=== PATIENT | female | born 1965 | race Caucasian/White ===

== ENCOUNTER 2018-06-18 16:28 | Outpatient (CLI) | payer MEDICAID, SELFPAY ==
[2018-06-18 17:48] LABS: CREATININE 0.96 mg/dL (0.55-1.02)
== END 2018-06-18 16:48 ==
PROVIDERS: PCP Family Medicine; Visit Provider Radiology Radiation Oncology
DX: C50.919 Malignant neoplasm of unspecified site of unspecified female breast (principal)
CPT/HCPCS: 36415; 82565

== ENCOUNTER 2018-06-20 00:28 | Outpatient (CLI) | payer MEDICAID, SELFPAY ==
--- NOTE | 2018-06-20 15:22 | DI.CT_ITS ---
SYMPTOM/DIAGNOSIS: METASTATIC BREAST CA, C50.919, S/P TREATMENT TO LT NECK, NOW NEW NODULES LT POST AURICULAR NECK NECK CT: CT examination of the cervical region was performed with intravenous infusion of 100 cc's of Omnipaque 350. Images obtained through the lung apices show in the right lung apex an approximately 12 by 4 mm. in diameter, irregular nodule. This does lie in an area of apparent pulmonary and pleural scarring and this is indeterminate in appearance however the possibility is not excluded. No previous CT available for comparison. Tracheal laryngeal structures appear intact. Apparent decreased caliber of hypopharynx may simply represent deglutition. Correlation requested regarding any suggestion of dysphagia or upper airway obstruction. Epiglottis appears normal. Vocal cords and other laryngeal structures are unremarkable. There are skin markers placed in the retroauricular region below the level of the pinna. These correspond to an area of poorly defined soft tissue thickening with multiple poorly defined areas of nodularity. The findings as described are nonspecific but may represent infectious or neoplastic process. No gross abscess or dominant mass identified. Mild napoleon enlargement is noted in posterior auricular chain on the right with the largest nodes measuring about 12 mm. in diameter. Correlation requested regarding any recent surgery in the left posterior auricular region. Visualized portions of the brain are unremarkable. Orbital structures appear intact. Predominant opacification of right maxillary antrum is noted consistent with chronic sinusitis. Right ethmoid increased attenuation also noted consistent with chronic sinus disease. Minimal mucoperiosteal thickening of right frontal sinus noted. CONCLUSION: 1. Indeterminate right apical lung nodule, neoplastic disease not excluded, chest CT suggested for further evaluation. 2. Indeterminate findings associated with left posterior auricular region, please see above discussion, infectious versus neoplastic origin. Biopsy should be considered if biopsy has not previously been obtained.
[2018-06-20] MEDS: Omnipaque 350 MG/ML 100 ML BTL IJ (15:30)
== END 2018-06-20 00:48 ==
PROVIDERS: PCP Family Medicine; Visit Provider Radiology Radiation Oncology
DX: C50.919 Malignant neoplasm of unspecified site of unspecified female breast (principal); D22.4 Melanocytic nevi of scalp and neck; R91.1 Solitary pulmonary nodule; J98.4 Other disorders of lung; R59.0 Localized enlarged lymph nodes; J32.0 Chronic maxillary sinusitis
CPT/HCPCS: 70491; J3490

== ENCOUNTER 2018-07-04 01:04 | Outpatient (CLI) | payer MEDICAID, SELFPAY ==
[2018-07-04 13:25] LABS: CREATININE 0.61 mg/dL (0.55-1.02)
--- NOTE | 2018-07-04 14:20 | DI.CT_ITS ---
SYMPTOM/DIAGNOSIS: METASTATIC BREAST CA, C50.919, RESTAGING EXAM CHEST, ABDOMEN AND PELVIC CT: Comparison is made with 03/27/18. CHEST: There has been no change in the right hilar and subcarinal lymph nodes. Scattered small nodes are seen in the AP window and superior mediastinum as well as in the left axilla. Surgical clips are seen. There has been interval increase in size of left axillary lymph nodes. No right axillary lymph nodes are seen. No pulmonary emboli are identified. There is stable scarring at the right lung apex. No pulmonary nodules, infiltrates or effusions are seen. IMPRESSION: Interval increase in size of left axillary lymph nodes. Stable appearing right hilar and subcarinal lymph nodes. ABDOMEN AND PELVIS: Again noted is re-cannulization of the umbilical vein and gallstones. There is no biliary dilatation. There is a small diverticulum of the transverse portion of the duodenum. The spleen, pancreas and adrenals are unremarkable. No renal calculi or hydronephrosis is seen. There are stable tiny mesenteric lymph nodes. There has been further improvement in the amount of stranding in the fat surrounding the rectum. No suspicious bony lesions are seen. IMPRESSION: Stable small retroperitoneal lymph nodes. Continued improvement of rectal wall thickening and elenita rectal stranding. No new metastatic disease is seen.
[2018-07-04] MEDS: Omnipaque 350 MG/ML 100 ML BTL IJ (14:21)
[2018-07-04] MEDS: Breeza Beverage 473 ML BTL PO (14:22)
[2018-07-04] MEDS: Omnipaque 350 MG/ML 50 ML BTL PO (14:22)
== END 2018-07-04 01:24 ==
PROVIDERS: PCP Family Medicine; Visit Provider Radiology Radiation Oncology
DX: C50.919 Malignant neoplasm of unspecified site of unspecified female breast (principal); Z12.89 Encounter for screening for malignant neoplasm of other sites; R59.0 Localized enlarged lymph nodes; Z13.89 Encounter for screening for other disorder
CPT/HCPCS: 74177; 71260; 82565; J3490; Q9967

== ENCOUNTER 2018-07-24 01:32 | Outpatient (CLI) | payer MEDICAID, SELFPAY ==
--- NOTE | 2018-07-24 10:51 | DI.NM_ITS ---
SYMPTOMS/DIAGNOSIS: METASTATIC BREAST CA, LOW BACK PAIN, C50.919 WHOLE BODY BONE SCAN: The patient received 22.1 mCi of technetium 99m MDP and whole body imaging was performed. There are no priors for comparison. There is normal activity seen in the kidneys and urinary bladder. No abnormal increased radiotracer uptake is seen in the axillary or appendicular skeleton to suggest osseous metastatic disease. There is symmetric increased radiotracer uptake seen in the shoulders, which is likely degenerative. IMPRESSION: No findings to suggest osseous metastatic disease.
== END 2018-07-24 01:52 ==
PROVIDERS: PCP Family Medicine; Visit Provider Radiology Radiation Oncology
DX: C50.919 Malignant neoplasm of unspecified site of unspecified female breast (principal); M54.5 Low back pain
CPT/HCPCS: 78306

== ENCOUNTER 2018-09-02 08:49 | Outpatient (CLI) | payer MEDICAID, SELFPAY ==
[2018-09-02 09:13] LABS: CREATININE 0.87 mg/dL (0.55-1.02)
== END 2018-09-02 09:09 ==
PROVIDERS: PCP Family Medicine; Visit Provider Radiology Radiation Oncology
DX: C50.919 Malignant neoplasm of unspecified site of unspecified female breast (principal)
CPT/HCPCS: 36415; 82565

== ENCOUNTER 2018-09-05 01:53 | Outpatient (CLI) | payer MEDICAID, SELFPAY ==
--- NOTE | 2018-09-05 14:11 | DI.CT_ITS ---
SYMPTOMS/DIAGNOSIS: KNOWN METASTATIC BREAST CA, S/P RADIATION TO LEFT NECK, NEW PAIN GOING DOWN LT ARM CT SCAN OF THE CHEST: CT scan of the chest was performed following the uneventful administration of intravenous contrast material. Comparison is 07/04/18. The thoracic aorta shows mild atherosclerosis. No aneurysmal dilatation is seen. The heart size is within normal limits. No significant pericardial effusion is present. The tip of the left PICC line is seen in the superior vena cava. No pleural effusion or pneumothorax is identified. There is again seen scarring in the right lung apex which appears stable. Small peripheral infiltrates are seen in the right upper, right middle and right lower lobes. No noncalcified pulmonary nodules are seen in the lungs. The tracheobronchial tree is unremarkable. The mediastinal and hilar lymph nodes are stable compared to the prior examination. The largest lymph node is seen in the subcarinal region and measures 2.7 x 1.5 cm. The enlarged left axillary lymph nodes are stable. The upper abdominal images show stones within the gallbladder. No biliary ductal dilatation. There are areas of sclerosis in several vertebral bodies not as prominent as the prior examination. Metastatic disease can not be excluded. Bone scan should be considered for further evaluation. IMPRESSION: 1. Stable thoracic adenopathy. 2. Development of peripheral infiltrates seen in the right lung. Infectious or inflammatory process should be considered. 3. Increased areas of sclerosis in the thoracic spine. Metastatic disease can not be excluded. Bone scan should be considered for further evaluation. CT SCAN OF THE NECK: Multiple contiguous axial images of the neck were obtained. Sagittal and coronal reformatted images were evaluated on the Siemens workstation. There is again seen soft tissue thickening and enhancement in the soft tissues in the right neck posterior and inferior to the left ear. There is no separation between the abnormal soft tissue and the underlying sternocleidomastoid muscle and muscular involvement can not be excluded. The nasopharynx, oropharynx, hypopharynx and larynx are unremarkable. The submandibular glands have a normal appearance as does the right parotid gland. There is soft tissue density material seen in the inferior aspect of the left parotid gland. This appears stable. This area measures 1 cm in diameter. There are mildly enlarged lymph nodes seen in the neck bilaterally. These are unchanged. The largest is adjacent to the left submandibular gland and measures 0.7 cm in short diameter. The retropharyngeal soft tissues are unremarkable. The orbits and retro-orbital soft tissues are unremarkable. The visualized paranasal sinuses are clear. The mastoid air cells are well pneumatized. There is straightening of the normal cervical lordosis. Mild to moderate degenerative changes are seen in the spine. There does appear to be fusion at the C 6 - 7 disc space. IMPRESSION: 1. Stable enhancing soft tissue thickening in the left posterior neck. There is no apparent separation between the underlying musculature and musculature involvement can not be excluded. An inflammatory or infectious process should be considered. Neoplastic process/metastatic disease can not be excluded. This appears stable. Biopsy may be considered for further evaluation.
[2018-09-05] MEDS: Omnipaque 350 MG/ML 100 ML BTL IJ (14:16)
== END 2018-09-05 02:13 ==
PROVIDERS: PCP Family Medicine; Visit Provider Radiology Radiation Oncology
DX: M54.2 Cervicalgia (principal); M79.602 Pain in left arm; Z85.3 Personal history of malignant neoplasm of breast; Z92.3 Personal history of irradiation; R91.8 Other nonspecific abnormal finding of lung field; M47.812 Spondylosis without myelopathy or radiculopathy, cervical region; R59.0 Localized enlarged lymph nodes
CPT/HCPCS: 70491; 71260; J3490

== ENCOUNTER 2018-09-05 12:52 | Outpatient (RCR) | payer MEDICAID, SELFPAY | END 2018-09-18 23:59 | disposition home or self-care (01) | LOC: INF 12:52 | PROVIDERS: PCP Family Medicine; Visit Provider Internal Medicine Hematology & Oncology | DX: Z45.2 Encounter for adjustment and management of vascular access device (principal) ==

== ENCOUNTER 2019-10-14 19:51 | Outpatient (REF) | payer MEDICAID, SELFPAY ==
[2019-10-14 20:09] LABS: Abs Immature Grans 0.01 k/cumm (0.0-0.09); Absolute Basophil Count 0.02 k/cumm (0.0-0.2); Absolute Eosinophil Count 0.13 k/cumm (0.0-0.7); Absolute Lymphocyte Count 0.81 k/cumm (1.2-3.4); Absolute Monocyte Count 0.41 k/cumm (0.11-0.7); Basophils % 0.6; Eosinophils % 4.1; HCT 27.1 % (36.0-46.0); Immature Grans % 0.3 %; Lymphocytes % 25.5; Mean Corp. HGB Concentration 33.2 g/dL (32.0-36.0); Mean Corpuscular Hemoglobin 30.7 pg (27.0-33.0); Mean Corpuscular Volume 92.5 fL (80-95); Mean Platelet Volume 10.1 fL (8.0-11.0); Monocytes % 12.9; Neutrophils % 56.6; RBC 2.93 m/cumm (4.00-5.20); RBC Distribution Width 20.5 % (11.7-14.6); White Blood Cell Count 3.18 k/cumm (4.4-10.8)
[2019-10-14 20:10] LABS: Platelet Count 108 x1000/uL (130-400)
[2019-10-14 20:16] LABS: ALT 40 U/L (14-59); AST 62 U/L (15-37); Albumin 3.1 g/dL (3.4-5.0); Alkaline Phosphatase 109 U/L (46-116); Anion Gap 11.7 mmol/L (3-11); BUN 8 mg/dL (7-18); Bilirubin, Total 1.4 mg/dL (0.2-1.0); CO2 23.3 mmol/L (21.0-32.0); CREATININE 0.72 mg/dL (0.55-1.02); Calcium 8.6 mg/dL (8.5-10.1); Chloride 102 mmol/L (98-107); Glucose 113 mg/dL (74-106); Magnesium 1.4 mg/dL (1.8-2.4); Potassium 3.6 mmol/L (3.5-5.1); Sodium 137 mmol/L (136-145)
[2019-10-14 20:47] LABS: Anisocytosis 2+; Polychromasia Present
== END 2019-10-14 20:11 ==
LOC: NCHCN 19:51
PROVIDERS: PCP Family Medicine; Visit Provider Family Medicine
DX: E11.9 Type 2 diabetes mellitus without complications (principal); E83.42 Hypomagnesemia; Z85.3 Personal history of malignant neoplasm of breast
CPT/HCPCS: 80053; 83735; 85025

== ENCOUNTER 2022-08-09 15:46 | Outpatient (REF) | payer MEDICAID, SELFPAY ==
[2022-08-09 15:31] LABS: Abs Immature Grans 0.01 10^3/uL (0.0-0.06); Absolute Basophil Count 0.05 10^3/uL (0.0-0.2); Absolute Eosinophil Count 0.06 10^3/uL (0.0-0.7); Absolute Monocyte Count 0.26 10^3/uL (0.1-0.8); Absolute Neutrophil Count 1.24 10^3/uL (1.2-6.7); Basophils % 2.5; HCT 30.2 % (36.0-46.0); HGB 9.7 g/dL (11.2-15.7); Immature Grans % 0.5; Lymphocytes % 19.8; MCH 28.6 pg (27.0-33.0); MCHC 32.1 % (32.0-36.0); MCV 89 fL (80-95); MPV 11.3 fL (8.0-11.0); Monocytes % 12.9; Neutrophils % 61.3; Platelet Count 104 10^3/uL (130-400); RBC 3.39 10^6/uL (3.93-5.22); RDW 15.3 % (11.7-14.6); RDW-SD 50.1 fL; WBC 2.02 10^3/uL (4.4-10.8)
[2022-08-09 15:46] LABS: ALT 24 U/L (14-59); AST 36 U/L (15-37); Albumin 2.4 g/dL (3.4-5.0); Alkaline Phosphatase 211 U/L (46-116); Anion Gap 7.9 mmol/L (3-11); BUN 12 mg/dL (7-18); Bilirubin, Total 0.8 mg/dL (0.2-1.0); CO2 26.1 mmol/L (21.0-32.0); CREATININE 0.8 mg/dL (0.55-1.02); Calcium 8.6 mg/dL (8.5-10.1); Chloride 97 mmol/L (98-107); Estimated GFR 85.35 (mL/min/1.73m2); Glucose 484 mg/dL (74-106); Potassium 4.1 mmol/L (3.5-5.1); Sodium 131 mmol/L (136-145); Total Protein 7.1 g/dL (6.4-8.2)
== END 2022-08-09 15:47 | disposition home or self-care (01) ==
LOC: NCHCN 15:46
PROVIDERS: PCP Family Medicine; Visit Provider Family Medicine
DX: A41.89 Other specified sepsis (principal); D64.9 Anemia, unspecified; E10.9 Type 1 diabetes mellitus without complications; R79.89 Other specified abnormal findings of blood chemistry
CPT/HCPCS: 80053; 85025

== ENCOUNTER 2022-08-20 21:03 | Outpatient (REF) | payer MEDICAID, SELFPAY ==
[2022-08-20 21:50] LABS: Anion Gap 7.2 mmol/L (3-11); BUN 17 mg/dL (7-18); CO2 26.8 mmol/L (21.0-32.0); CREATININE 0.7 mg/dL (0.55-1.02); Calcium 8.9 mg/dL (8.5-10.1); Chloride 99 mmol/L (98-107); Estimated GFR 100.19 (mL/min/1.73m2); Glucose 269 mg/dL (74-106); Potassium 4.1 mmol/L (3.5-5.1); Sodium 133 mmol/L (136-145)
[2022-08-20 21:56] LABS: Hemoglobin A1C 10.7 % (<5.7)
[2022-08-20 22:00] LABS: Abs Immature Grans 0.03 10^3/uL (0.0-0.06); Absolute Basophil Count 0.08 10^3/uL (0.0-0.2); Absolute Eosinophil Count 0.12 10^3/uL (0.0-0.7); Absolute Lymphocyte Count 0.69 10^3/uL (1.2-3.4); Absolute Monocyte Count 0.41 10^3/uL (0.1-0.8); Absolute Neutrophil Count 2.03 10^3/uL (1.2-6.7); Basophils % 2.4; Eosinophils % 3.6; HCT 32.1 % (36.0-46.0); HGB 10.6 g/dL (11.2-15.7); Immature Grans % 0.9; Lymphocytes % 20.5; MCH 28.6 pg (27.0-33.0); MCV 87 fL (80-95); MPV 11.5 fL (8.0-11.0); Monocytes % 12.2; Neutrophils % 60.4; Platelet Count 101 10^3/uL (130-400); RDW 14.4 % (11.7-14.6); RDW-SD 45.7 fL; WBC 3.36 10^3/uL (4.4-10.8)
[2022-08-20 22:09] LABS: Diff Comment PLT Morph Reviewed; RBC Morphology Normal
== END 2022-08-20 21:04 | disposition home or self-care (01) ==
LOC: NCHCN 21:03
PROVIDERS: PCP Family Medicine; Visit Provider Family Medicine
DX: E11.649 Type 2 diabetes mellitus with hypoglycemia without coma (principal); A41.89 Other specified sepsis
CPT/HCPCS: 80048; 83036; 85025

== ENCOUNTER 2022-12-10 16:38 | Outpatient (REF) | payer MEDICAID, SELFPAY ==
[2022-12-10 16:15] LABS: HCT 27.4 % (36.0-46.0); HGB 8.9 g/dL (11.2-15.7); MCH 28.3 pg (27.0-33.0); MCHC 32.5 % (32.0-36.0); MCV 87 fL (80-95); MPV 10.6 fL (8.0-11.0); RBC 3.14 10^6/uL (3.93-5.22); RDW-SD 51.5 fL; WBC 3.63 10^3/uL (4.4-10.8)
[2022-12-10 17:46] LABS: Anion Gap 8.5 mmol/L (3-11); BUN 43 mg/dL (7-18); CO2 25.5 mmol/L (21.0-32.0); CREATININE 2.1 mg/dL (0.55-1.02); Calcium 9.5 mg/dL (8.5-10.1); Chloride 99 mmol/L (98-107); Estimated GFR 26.81 (mL/min/1.73m2); Glucose 219 mg/dL (74-106); Magnesium 1.8 mg/dL (1.8-2.4); Potassium 4.2 mmol/L (3.5-5.1); Sodium 133 mmol/L (136-145)
[2022-12-10 18:51] LABS: Platelet Count 81 10^3/uL (130-400)
== END 2022-12-10 16:39 | disposition home or self-care (01) ==
LOC: NCHCN 16:38
PROVIDERS: PCP Family Medicine; Visit Provider Family Medicine
DX: E78.5 Hyperlipidemia, unspecified (principal); E16.2 Hypoglycemia, unspecified; R78.81 Bacteremia
CPT/HCPCS: 80048; 85027; 83735

== ENCOUNTER 2023-06-28 14:16 | Outpatient (REF) | payer MEDICAID, SELFPAY ==
--- NOTE | 2023-06-28 12:00 | SKI_PTH ---
PATIENT: Albertina Hong I LOC: [facility] U#:[id number] AGE/SX: 58/F ROOM: RE06/28/[address]: Gabrielle Palencia V : 1965 BED: DIS: 06/28/2023 SPEC #: [id number] RECD: 06/28/23 14:20 STATUS: VERN RENancy #: [id number] CONOR: 06/28/23 12:[address]: Gabrielle Palencia V DEPT: Surgical Specimen RECD BY: Niurka Esquivel Tissues: 1 - SKIN BIOPSY(SHAVE/PUNCH) Procedures: IMMUNOPEROXIDASE STAIN SKIN LEVEL 4 Comments: [id number]
--- OUTSIDE RECORDS SUMMARY | 2023-06-28 14:33 | XMS_ITS | Continuity of Care Document ---
Author Name Unknown Organization [facility] Address [address] [place] [address] Care Team Providers Care Manufacturing Technology Analyst Name Role Phone MAYO DUNN Primary Care Physician [phone] Encounter [facility] NBR [id number] Date(s): 03/19/23 - 03/19/23 [facility] [address] [place] [address]- [place] Discharge Disposition: Home Allergies, Adverse Reactions, Alerts Substance Reaction Severity Status morphine Severe Active Bee Stings Unknown Active Assessment and Plan Future Appointments Future Scheduled Tests Radiology* US Abdomen Limited 03/12/23 Medications ceFAZolin 10 g injection 0 Refill(s) Start Date: 03/06/23 Status: Ordered clindamycin 300 mg oral capsule 300 mg = 1 cap, Oral, BID, # 14 cap, 0 Refill(s) Start Date: 03/06/23 Stop Date: 03/13/23 Status: Ordered FREESTYLE CASSIE 2 SENSOR KIT FREESTYLE CASSIE 2 SENSOR KIT, USE DIRECTED , CHANGE SENSOR EVERY 2 WEEKS Start Date: 03/06/23 Status: Ordered furosemide 20 mg oral tablet 20 mg = 1 tab, Oral, Daily, # 90 tab, 0 Refill(s) Start Date: 03/06/23 Status: Ordered gabapentin 100 mg oral capsule 100 mg = 1 cap, Oral, TID, # 90 cap, 0 Refill(s) Start Date: 03/06/23 Status: Ordered hydrALAZINE 25 mg oral tablet 25 mg = 1 tab, Oral, QID, # 120 tab, 0 Refill(s) Start Date: 03/06/23 Status: Ordered Lantus Solostar Pen 100 units/mL subcutaneous solution 10 units =, Subcutaneous, Daily, # 3 mL, 0 Refill(s) Start Date: 03/06/23 Status: Ordered levoFLOXacin 750 mg oral tablet 750 mg = 1 tab, Oral, every 24 hr, # 7 tab, 0 Refill(s) Start Date: 03/06/23 Stop Date: 03/13/23 Status: Ordered losartan 50 mg oral tablet 50 mg = 1 tab, Oral, Daily, # 90 tab, 0 Refill(s) Start Date: 03/06/23 Status: Ordered magnesium oxide 400 mg (241.3 mg elemental magnesium) oral tablet 400 mg = 1 tab, Oral, Daily, # 7 tab, 0 Refill(s) Start Date: 03/06/23 Stop Date: 03/13/23 Status: Ordered MetFORMIN (Eqv-Glucophage XR) 500 mg oral tablet, extended release TAKE 1 TABLET BY MOUTH ONCE DAILY IN THE MORNING Start Date: 03/06/23 Status: Ordered Metoprolol Tartrate 25 mg oral tablet 25 mg = 1 tab, Oral, BID, # 60 tab, 0 Refill(s) Start Date: 03/06/23 Status: Ordered ondansetron 4 mg oral tablet, disintegrating 4 mg = 1 tab, Oral, Once, PRN as needed for nausea/vomiting, 0 Refill(s) Start Date: 03/06/23 Status: Ordered Potassium Chloride (Coj-Gmeq-Gbi M20) 20 mEq oral tablet, extended release TAKE 1 TABLET BY MOUTH DAILY Start Date: 03/06/23 Status: Ordered spironolactone 25 mg oral tablet 25 mg = 1 tab, Oral, Daily, # 30 tab, 0 Refill(s) Start Date: 03/06/23 Status: Ordered sucralfate 1 g oral tablet 1 g = 1 tab, Oral, BID, # 60 tab, 0 Refill(s) Start Date: 03/06/23 Status: Ordered vancomycin 1 g intravenous injection 1 g =, IV, every 12 hr, # 14 EA, 0 Refill(s) Start Date: 03/06/23 Stop Date: 03/13/23 Status: Ordered Problem List Condition Confirmation Course Effective Dates Status H ealth Status Informant Abdominal pain Confirmed Active AF - Atrial fibrillation Confirmed Active LAURIE - acute kidney injury Confirmed Active Ataxia Confirmed Active Bacteremia Confirmed Active Breast cancer Confirmed Active Breast reconstruction Confirmed Active Cataract Confirmed Active Cervicalgia Confirmed Active Chemotherapy Confirmed Active Chronic diarrhea Confirmed Active Chronic pain Confirmed Active Clostridium difficile Confirmed Active Coagulopathy Confirmed Active Constipation Confirmed Active Cyst Confirmed Active Depression Confirmed Active DM - Diabetes mellitus Confirmed Active Epistaxis Confirmed Active Foot callus Confirmed Active Gastric varices Confirmed Active GI - Gastrointestinal bleed Confirmed Active Hemoptysis Confirmed Active History of COVID-19 Confirmed Active HT - Hypertension Confirmed Active Hyperlipidemia Confirmed Active Hypoglycemia Confirmed Active Hypokalemia Confirmed Active Hypomagnesemia Confirmed Active Hyponatremia Confirmed Active N&V - Nausea and vomiting Confirmed Active Normocytic anemia Confirmed Active Osteoarthritis Confirmed Active Pericarditis Confirmed Active Plantar wart Confirmed Active Pleural effusion Confirmed Active Port Confirmed Active Portal hypertension Confirmed Active Refractive error Confirmed Active Respiratory distress Confirmed Active Sacroiliac joint Confirmed Active Sepsis Confirmed Active Skin lesion Confirmed Active Thrombocytopenia Confirmed Active Unintentional weight loss Confirmed Active Procedures Procedure Date Related Diagnosis Body Site Status Biopsy of liver 1 12/11/17 Complet ed Hysterectomy 11/28/06 Completed Breast reconstruction Com pleted Lumpectomy Completed Mastectomy Double Complet ed 1with ultrasound Social History Social History Type Response Tobacco Never tobacco user T obacco Use:. Sex Patient Care team information Care Team Personnel Name: MAYO DUNN Position: No Access Member Role: Primary Care Physician Address: Address: [address] [place] [id number] [place] Care Team Related Persons Name: PATEL MCCORMICK Address: Home [address] [place], [place] [id number] [facility]
--- OUTSIDE RECORDS SUMMARY | 2023-06-28 14:33 | XMS_ITS | Continuity of Care Document ---
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 Name Role Phone GABRIELLE PALENCIA Primary Care Physician [phone] Encounter [facility] NBR [id number] Date(s): 05/13/23 - 05/13/23 [facility] Ambulatory Clinics [address] [place], [place] [address] Encounter Diagnosis Cirrhosis, nonalcoholic(Discharge Diagnosis) - 05/13/23 Hepatitis B vaccination administered at current visit(Discharge Diagnosis) - 05/13/23 Esophageal varices in cirrhosis(Discharge Diagnosis) - 05/13/23 Discharge Disposition: Home or Self Care Attending Physician: Liz Rg APRN Allergies, Adverse Reactions, Alerts Substance Reaction Severity Status morphine Vomiting Severe Active Bee Stings Unknown Active Assessment and Plan Future Appointments Functional Status 05/13/23 Other exposure to Infectious Disease Non e Immunizations Given and Recorded Vaccine Date Status Refusal Reason hepatitis B adult vaccine 05/13/23 Given Medications FREESTYLE CASSIE 2 SENSOR KIT FREESTYLE CASSIE 2 SENSOR KIT, USE DIRECTED , CHANGE SENSOR EVERY 2 WEEKS Start Date: 03/06/23 Status: Ordered gabapentin 100 mg oral capsule 100 mg = 1 cap, Oral, BID, # 90 cap, 0 Refill(s) Start Date: [...] Start Date: 03/06/23 Status: Ordered Potassium Chloride (Cfq-Urrt-Tzd M20) 20 mEq oral tablet, extended release TAKE 1 TABLET BY MOUTH DAILY Start Date: 03/06/23 Status: Ordered spironolactone 25 mg oral tablet 25 mg = 1 tab, Oral, Daily, # 30 tab, 0 Refill(s) Start Date: 03/06/23 Status: Ordered sucralfate 1 g oral tablet 1 g = 1 tab, Oral, BID, # 60 tab, 0 Refill(s) Start Date: 03/06/23 Status: Ordered Problem List Condition Confirmation Course Effective Dates Status H ealth Status Informant Abdominal pain Confirmed Active AF - Atrial fibrillation Confirmed Active LAURIE - acute kidney injury Confirmed Active Ataxia Confirmed Active Bacteremia Confirmed Active Breast cancer Confirmed Active Breast reconstruction Confirmed Active Cataract Confirmed Active Cervicalgia Confirmed Active Chemotherapy Confirmed Active Chronic diarrhea Confirmed Active Chronic pain Confirmed Active Cirrhosis, nonalcoholic Confirmed Active Clostridium difficile Confirmed Active Coagulopathy Confirmed Active Constipation Confirmed Active Cyst Confirmed Active Depression Confirmed Active DM - Diabetes mellitus Confirmed Active Duodenitis Confirmed Active Epistaxis Confirmed Active Esophageal varices Confirmed Active Esophageal varices in cirrhosis Confirmed Active Foot callus Confirmed Active Gastric reflux Confirmed Active Gastric varices Confirmed Active Gastritis Confirmed Active GI - Gastrointestinal bleed Confirmed Active Hemoptysis Confirmed Active Hiatal hernia Confirmed Active History of COVID-19 Confirmed Active HT - Hypertension Confirmed Active Hyperlipidemia Confirmed Active Hypoglycemia Confirmed Active Hypokalemia Confirmed Active Hypomagnesemia Confirmed Active Hyponatremia Confirmed Active N&V - Nausea and vomiting Confirmed Active Normocytic anemia Confirmed Active Osteoarthritis Confirmed Active Pericarditis Confirmed Active Plantar wart Confirmed Active Pleural effusion Confirmed Active Port Confirmed Active Portal hypertension Confirmed Active Portal hypertensive gastropathy Confirmed Active Refractive error Confirmed Active Respiratory distress Confirmed Active Sacroiliac joint Confirmed Active Sepsis Confirmed Active Skin lesion Confirmed Active Surgical precautions, right arm d/t total mastectectomy w/lymph node removal 1 Confirmed Active Thrombocytopenia Confirmed Active Unintentional weight loss Confirmed Active Hepatitis B vaccination administered at current visit Confirmed Active 1pt had bilat mastectomy . States can only use left arm Procedures Procedure Date Related Diagnosis Body Site Status Esophagogastroduodenoscopy Biopsy 1 04/29/23 Completed Colonoscopy 2 09/24/19 Completed Biopsy of liver 3 12/11/17 Complet ed Hysterectomy 11/28/06 Completed Breast reconstruction Com pleted Lumpectomy Completed Mastectomy Double Complet ed 1auto-populated from documented surgical case 2[facility] 3with ultrasound Vital Signs Most recent to oldest [Reference Range]: 1 Temperature Temporal Artery [36-38 Deg C ] 36.6 Deg C (05/13/23 9:34 AM) Apical Heart Rate [60-100 bpm] 80 bpm (05/13/23 9:34 AM) Weight 62.14 kg (05/13/23 9:34 AM) Weight Measured (lbs) 136.995 lb (05/13/23 9:34 AM) Kimberly Body Weight Calculated 50.1 kg (05/13/23 9:34 AM) Height 157.48 cm (05/13/23 9:34 AM) Height/Length Measured (inches) 62 inch (05/13/23 9:34 AM) BSA Measured 1.65 m2 (05/13/23 9:34 AM) Body Mass Index 25.06 kg/m2 (05/13/23 9:34 AM) Social History Social History Type Response Tobacco Never tobacco user T obacco Use:. Sex Physician Outpatient Note * Liz Rg APRN: PERFORM Event Display: Office Clinic Note Physician Authored Date: [id number] JORGEKATHRYN I :1965 Age:58 years Sex:Female Visit Date:05/13/2023 Primary Care Physician: GABRIELLE PALENCIA Chief Complaint EGD follow up History of Present Illness Patient is a 58-year-old female patient of Dr. Gabrielle Palencia??who carries a diagnosis of cirrhosis??made by transjugular liver biopsy on 12/16/2017.?? She is here today for an EGD??follow-up. ??At that time biopsy showed lobular and periportal chronic inflammation with plasma cells and neutrophils, bridging and perisinusoidal fibrosis??raising the question of autoimmune hepatitis. ??Iron stain wasnegative.? Past medical history significant for??diabetes, hypertension,??and metastatic breast cancer.?? She reports having??a lung procedure done??at [facility] [place]2 years ago which sounds like pleurodesis. ?? Recently hospitalized at [facility] from 11/30 to 12/04/2022??for fluid overload,??and??enterococcal bacteremia/line sepsis??with acute kidney injury.? She had an episode of C. difficile in November of this year??she is currently back to baseline bowel habits.? She had a paracentesis 4 years ago, results are not available.? She is currently off of furosemide??due to??azotemia.?? Continues on hydralazine??and??low-dose spironolactone to 25 mg daily. ?? Denies peripheral edema or increased abdominal girth.?States she consumes a low-sodium diet. ??She avoids alcohol.?? She drinks 1 cup of coffee daily. ??Denies any??unsteady gait or problems with cognition or memory. ?? Labs: ??-December 10, 2022??which show??hemoglobin of 8.9 up from 7.7 on 12/04/2022.?? Platelets of 81,000 up from 70,000 on 12/04/2022.?? Sodium 133, potassium 4.2,??BUN 43, creatinine 2.1.?? Creatinine was 2.49??on 12/04/2022.?? Total bilirubin on 12/04/2022 was 0.5, AST 42, ALT 28, alkaline phosphatase 143, alb umin 2.8.?? -03/12/2023 INR 1, iron studies??normal other than iron saturation low 19,??alpha-1 antitrypsin and seropositive normal. ??Folate and B12??normal.?? aFP 2.6, normal, CARLTON negative,??smooth muscle, mitochondrial antibodies, liver kidney microsomal??antibodies negative.?? Patient does not have hepatitis B or C.?? Is immune to hepatitis A but not to hepatitis B. ?? Imaging: -11/30/2022??CT scan of the abdomen pelvis without contrast showing a cirrhotic appearing liver, small bilateral effusions, small amount of ascites, gallstones with normal ducts, splenomegaly??and normal kidneys and ureters.?? At the present time she denies abdominal pain, abdominal distention,??lower extremity edema, black or bloody stools,??easy bruising, or confusion.?? -Ultrasound done 04/09/2023??showed cirrhosis without a focal hepatic lesion.?? Gallbladder polyp noted. ?? EGD: She believes she had an upper endoscopy 4 years ago at weeks but does not recall the results. ??Same-day colonoscopy??results are unknown by the patient.? -EGD done??04/29/2023 showed portal hypertension with mild??portal gastropathy seen and grade 1 esophageal varices. ??Mild reactive??chemical gastropathy without H. pylori infection seen. ??No celiac disease. ?She has no family history of gastrointestinal cancers or liver disease.?? Review of Systems Pertinent positives and negatives are discussed in HPI. Physical Exam Vitals & Measurements T:??36.6?C ??(Temporal Artery)?? HR:??80??(Apical)?? SpO2:??99%?? HT:??157.48??cm?? WT:??62.14??kg?? BMI:??25.06?? BSA:??1.65?? General: Well-nourished well-developed??female??in no acute distress. HEENT: Head is normocephalic, trachea midline, and no cervical lymphadenopathy. Respiratory: Respirations are even and unlabored. ??Lungs are clear to auscultation. Cardiovascular: Regular rate and rhythm with S1 and S2. Abdomen: Positive bowel sounds x4 quadrants, no masses, no guarding, no tenderness. ??No hepatosplenomegaly. ??Abdomen is soft. Skin: Warm, dry, and pink. Neurological: Alert and oriented x3, speech is clear and gait is steady. Psychological: Pleasant, calm and cooperative. Assessment/Plan 1.??Cirrhosis, nonalcoholic??K74.60,??Esophageal varices in cirrhosis??K74.60 EGD showed??mild portal hypertensive gastropathy with grade 1 esophageal varices. ??Repeat??in 1 year.?? No H. pylori infection or celiac disease seen.?? Labs rule out hemochromatosis, viral and autoimmune hepatitis.?? She was nonimmune to hepatitis B but is immune to hepatitis A.?? First dose of hepatitis B given today.?? Second dose will be??in 1 month and??third dose in 6 months from now.?? Recommend 2 cups of coffee daily. ??Recommend 2 g sodium diet.?? Patient does have a history of diabetes.?? Question??related to nonalcoholic fatty liver disease. ??Advised to avoid alcohol and maintainhealthy weight.?? Advised to call for increasing??abdominal girth,??peripheral edema,??difficulty??with gait or cognition.?? Follow-up in 3 months. ??AFP and abdominal ultrasound unremarkable for??HCC.?? 2 to 3 months for HCC screening. 2.??Hepatitis B vaccination administered at current visit??Z23 above. Orders: Follow-up Appointment Request [email or web address], *Est. 08/13/23 +/- 21 days, Future Order, f/u cirrhosis, In Approximately, [facility] Gastroenterology Voice recognition software utilized which may result in minor auto washer error. Medications and Immunizations This Visit Given hepatitis B adult vaccine, 1 mL, IM. For: Problem List/Past Medical History Ongoing Abdominal pain AF - Atrial fibrillation LAURIE - acute kidney injury Ataxia Bacteremia Breast cancer Breast reconstruction Cataract Cervicalgia Chemotherapy Chronic diarrhea Chronic pain Cirrhosis, nonalcoholic Clostridium difficile Coagulopathy Constipation Cyst Depression DM - Diabetes mellitus Duodenitis Epistaxis Esophageal varices Esophageal varices in cirrhosis Foot callus Gastric reflux Gastric varices Gastritis GI - Gastrointestinal bleed Hemoptysis Hepatitis B vaccination administered at current visit Hiatal hernia History of COVID-19 HT - Hypertension Hyperlipidemia Hypoglycemia Hypokalemia Hypomagnesemia Hyponatremia N&V - Nausea and vomiting Normocytic anemia Osteoarthritis Pericarditis Plantar wart Pleural effusion Port Portal hypertension Portal hypertensive gastropathy Refractive error Respiratory distress Sacroiliac joint Sepsis Skin lesion Surgical precautions, right arm d/t total mastectectomy w/lymph node removal Thrombocytopenia Unintentional weight loss Historical No qualifying data Procedure/Surgical History ???Esophagogastroduodenoscopy Biopsy (04/29/2023)???Colonoscopy (09/25/2019)???Biopsy of liver (12/12/2017)???Hysterectomy (11/29/2006)???Breast reconstruction???Lumpectomy???Mastectomy Double Medications FREESTYLE CASSIE 2 SENSOR KIT gabapentin 100 mg oral capsule, 100 mg= 1 cap, Oral, BID Lantus Solostar Pen 100 units/mL subcutaneous solution, 10 units, Subcutaneous, Daily magnesium oxide 400 mg (241.3 mg elemental magnesium) oral tablet, 400 mg= 1 tab, Oral, Daily MetFORMIN (Eqv-Glucophage XR) 500 mg oral tablet, extended release Metoprolol Tartrate 25 mg oral tablet, 25 mg= 1 tab, Oral, BID Potassium Chloride (Mju-Bffn-Nyr M20) 20 mEq oral tablet, extended release spironolactone 25 mg oral tablet, 25 mg= 1 tab, Oral, Daily sucralfate 1 g oral tablet, 1 g= 1 tab, Oral, BID Allergies morphine??(Vomiting) Bee Stings Social History Alcohol Never Electronic Cigarette/Vaping Electronic Cigarette Use: Never. Substance Use Never Tobacco Never tobacco user Tobacco Use:. Family History Brain tumor: Sister. Cancer: Father and Sister. Pneumonia: Brother. Family Member(s): ?? FATHER, at age: Unknown. Cause of : Family Member(s): ?? SISTER, at age: Unknown. Cause of : Family Member(s): ?? BROTHER, at age: Unknown. Cause of : Immunizations Vaccine Date Status hepatitis B adult vaccine 05/13/2023 Given Electronically Signed on 05/13/23 10:05 AM Liz Rg APRN Patient Care team information Care Team Personnel Name: GABRIELLE PALENCIA Position: No Access Member Role: Primary Care Physician Address: Address: [address] [place] [phone] [place] Care Team Related Persons Name: PATEL MCCORMICK Address: [address] [place], [place] [id number] [facility]
--- OUTSIDE RECORDS SUMMARY | 2023-06-28 14:33 | XMS_ITS | Continuity of Care Document ---
Author Name Unknown Organization [facility] Ambulatory Clinics Address [address] [place] [address] Care Team Providers Care Denture Model Maker Name Role Phone GABRIELLE DUNN Primary Care Physician [phone] Encounter [facility] NBR [id number] Date(s): 03/12/23 - 03/12/23 [facility] Ambulatory Clinics [address] [place] [address]- Encounter Diagnosis Normocytic anemia(Discharge Diagnosis) - 03/12/23 Cirrhosis of liver with ascites(Discharge Diagnosis) - 03/12/23 Other ascites(Discharge Diagnosis) - 03/12/23 Discharge Disposition: Home or Self Care Attending Physician: Wilfred Ross MD Referring Physician: GABRIELLE DUNN Allergies, Adverse Reactions, Alerts Substance Reaction Severity [...] Start Date: 03/06/23 Status: Ordered Potassium Chloride (Ztn-Naqq-Cjy M20) 20 mEq oral tablet, extended release [...] Completed Mastectomy Double Complet ed 1with ultrasound Vital Signs Most recent to oldest [Reference Range]: 1 Temperature Temporal Artery [36-38 Deg C ] 37.1 Deg C (03/12/23 8:54 AM) Peripheral Pulse Rate [60-100 bpm] 77 bp m (03/12/23 8:54 AM) Weight 62.2 kg (03/12/23 8:54 AM) Weight Measured (lbs) 137.127 lb (03/12/23 8:54 AM) Marlin Body Weight Calculated 50.1 kg (03/12/23 8:54 AM) Height 157.48 cm (03/12/23 8:54 AM) Height/Length Measured (inches) 62 inch (03/12/23 8:54 AM) BSA Measured 1.65 m2 (03/12/23 8:54 AM) Body Mass Index 25.08 kg/m2 (03/12/23 8:54 AM) Social History Social History Type Response Tobacco Never tobacco user T obacco Use:. Sex Physician Outpatient Note * Wilfred Ross MD: PERFORM Event Display: Office Clinic Note Physician Authored Date: [id number] KATHRYN PATEL I :1965 Age:58 years Sex:Female Visit Date:03/12/2023 Primary Care Physician: GABRIELLE DUNN Chief Complaint Initial visit to establish care for nonalcoholic cirrhosis History of Present Illness Initial visit for this 58-year-old female patient of Dr. Gabrielle Dunn??who carries a diagnosis of cirrhosis??made by transjugular liver biopsy on 12/16/2017. ??At that time biopsy showed lobular and periportal chronic inflammation with plasma cells and neutrophils, bridging and perisinusoidal fibrosis??raising the question of autoimmune hepatitis. ??Iron stain was negative.?? Past medical historysignificant for??diabetes, hypertension,??and metastatic breast cancer.?? She reports [place]??[place] [facility] [place] which sounds like pleurodesis. ?? Recently hospitalized at [facility] from 11/30 to 12/04/2022??for fluid overload,??and??enterococcal bacteremia/line sepsis??with acute kidney injury.?? 45 pages of referral notes are reviewed.?? Her most recent labs are from December 10, 2022??which show??hemoglobin of 8.9 up from 7.7 on 12/04/2022.?? Platelets of 81,000 up from 70,000 on 12/04/2022.?? Sodium 133, potassium 4.2,??BUN 43, creatinine 2.1.?? Creatinine was 2.49??on 12/04/2022.?? Total bilirubin on 12/04/2022 was 0.5, AST 42, ALT 28, alkaline phosphatase 143, albumin 2.8.?? Most recent liver imaging was on 11/30/[address] scan of the abdomen pelvis without contrast showing a cirrhotic appearing liver, small bilateral effusions, small amount of ascites, gallstones with normal ducts, splenomegaly??and normal kidneys and ureters.?? At the present time she denies abdominal pain, abdominal distention,??lower extremity edema, black or bloody stools,??easy bruising, or confusion.?? She believes she had an upper endoscopy 4 years ago at [facility] but does not recall the results. ??Same-day colonoscopy??results are unknown by the patient. ??She has no family history of gastrointestinal cancers or liver disease.?? She had an episode of C. difficile in November of this year??she is currently back to baseline bowel habits.?? She had a paracentesis 4 years ago, results are not available.?? She is currently off of furosemide??due to ??azotemia.?? She is no longer on antibiotics??but continues on hydralazine??and??low-dose spironolactone to 25 mg daily. Review of Systems Pertinent positive negatives as documented in the HPI. Physical Exam Vitals & Measurements T:??37.1?C ??(Temporal Artery)?? HR:??77??(Peripheral)?? SpO2:??98%?? HT:??157.48??cm?? WT:??62.2??kg?? BMI:??25.08?? BSA:??1.65?? Developed well-nourished white female no acute distress Lungs: Clear to auscultation bilaterally Heart: Regular rhythm S1-S2 Abdomen: Normoactive bowel sounds, soft, nontender??no??shifting dullness or fluid wave, no organomegaly Extremities: No edema Assessment/Plan 1.??Normocytic anemia??D64.9 Characterize the patient's anemia. Ordered: Actin (Smooth Muscle) Antibody LC, Blood, Routine, 03/12/23, Once, Lab Collect, Normocytic anemia Cirrhosis of liver with ascites, Order for future visit AFP, Serum, Tumor Marker LC, Blood, Routine, 03/12/23, Once, Lab Collect, Normocytic anemia Cirrhosis of liver with ascites, Order for future visit [id number], Serum LC, Blood, Routine, 03/12/23, Once, Lab Collect, Normocytic anemia Cirrhosis of liver with ascites, Order for future visit CARLTON w/Reflex LC, Blood, Routine, 03/12/23, Once, Lab Collect, Normocytic anemia Cirrhosis of liver with ascites, Order for future visit Ceruloplasmin LC, Blood, Routine, 03/12/23, Once, Lab Collect, Normocytic anemia Cirrhosis of liver with ascites, Order for future visit Ferritin, Blood, Routine, 03/12/23, Once, Lab Collect, Normocytic anemia Cirrhosis of liver with ascites, Order for future visit Hep A Ab, Total LC, Blood, Routine, 03/12/23, Once, Lab Collect, Normocytic anemia Cirrhosis of liver with ascites, Order for future visit Hep B Core Ab, Tot LC, Blood, Routine, 03/12/23, Once, Lab Collect, Normocytic anemia Cirrhosis of liver with ascites, Order for future visit Hepatitis B Surface Antibody, Blood, Routine, 03/12/23, Once, Lab Collect, Normocytic anemia Cirrhosis of liver with ascites, Order for future visit Hepatitis B Surface Antigen, Blood, Routine, 03/12/23, Once, Lab Collect, Normocytic anemia Cirrhosis of liver with ascites, Order for future visit Hepatitis C Antibody, Blood, Routine, 03/12/23, Once, Lab Collect, Normocytic anemia Cirrhosis ofliver with ascites, Order for future visit Iron Panel, Blood, Routine, 03/12/23, Once, Lab Collect, Normocytic anemia Cirrhosis of liver with ascites, Order for future visit Liver-Kidney Microsomal Ab LC, Blood, Routine, 03/12/23, Once, Lab Collect, Normocytic anemia Cirrhosis of liver with ascites, Order for future visit Mitochondrial (M2) Antibody LC, Blood, Routine, 03/12/23, Once, Lab Collect, Normocytic anemia Cirrhosis of liver with ascites, Order for future visit PT/ INR, Blood, Routine, 03/12/23, Once, Lab Collect, Normocytic anemia Cirrhosis of liver with ascites, Order for future visit Surgical Procedure Booking Request LTTL, 03/12/23 9:26:00 EDT, 04/29/23 10:00:00 EDT, [facility]L Endoscopy, epigastric pain, n/v, Normocytic anemia Cirrhosis of liver with ascites, Outpatient, EGD, Primary Procedure, , , , Wilfred Ross MD, Consent to read EGD--[id number], [id number], [id number], 4... US Abdomen Limited, 03/12/23, Routine, Reason: HCC screening,cirrhosis, Transport Mode: Ambulatory,Normocytic anemia Cirrhosis of liver with ascites Vitamin B12 & Folate Level, Blood, Routine, 03/12/23, Once, Lab Collect, Normocytic anemia Cirrhosis of liver with ascites, Order for future visit ?? 2.??Cirrhosis of liver with ascites??K74.60 Etiology is undetermined. ??Check usual serologies. ??Biopsies suspicious for autoimmune hepatitis.??The patient has not seen a assignment officer in the past. ??She does not have elevated aminotransferases??and does not meet??treatment criteria??for autoimmune hepatitis at the present time. ??On examination appears compensated at this time.?? Ultrasound to assess for ascites.?? Confirm immunity to hepatitis a and B. ??She believes she was immunized against both.?? We discussed??need for HCC screening every 6 months.?? Check alpha-fetoprotein.?? We will obtain ultrasound??although??noncontrasted CT scan??in November of this year??showed no evidence of HCC.?? Discussed the need to??limit sodium intaketo no more than 2000 mg daily.?? We will discuss??any??diuretic??changes??at her follow-up visit??based on??labs and imaging studies.?? The patient's kidney injury??is??likely not to be related??to her chronic liver disease??given that??she has not??had significant ascites.?? Schedule EGD to screenfor esophageal varices.?? Obtain prior??endoscopy and pathology reports from [facility].?? We will obtain labs to calculate MELD sodium score. Ordered: Actin (Smooth Muscle) Antibody LC, Blood, Routine, 03/12/23, Once, Lab Collect, Normocytic anemia Cirrhosis of liver with ascites, Order for future visit AFP, Serum, Tumor Marker LC, Blood, Routine, 03/12/23, Once, Lab Collect, Normocytic anemia Cirrhosis of liver with ascites, Order for future visit [id number], Serum LC, Blood, Routine, 03/12/23, Once, Lab Collect, Normocytic anemia Cirrhosis of liver with ascites, Order for future visit CARLTON w/Reflex LC, Blood, Routine, 03/12/23, Once, Lab Collect, Normocytic anemia Cirrhosis of liver with ascites, Order for future visit Ceruloplasmin LC, Blood, Routine, 03/12/23, Once, Lab Collect, Normocytic anemia Cirrhosis of liver with ascites, Order for future visit Ferritin, Blood, Routine, 03/12/23, Once, Lab Collect, Normocytic anemia Cirrhosis of liver with ascites, Order for future visit Hep A Ab, Total LC, Blood, Routine, 03/12/23, Once, Lab Collect, Normocytic anemia Cirrhosis of liver with ascites, Order for future visit Hep B Core Ab, Tot LC, Blood, Routine, 03/12/23, Once, Lab Collect, Normocytic anemia Cirrhosis of liver with ascites, Order for future visit Hepatitis B Surface Antibody, Blood, Routine, 03/12/23, Once, Lab Collect, Normocytic anemia Cirrhosis of liver with ascites, Order for future visit Hepatitis B Surface Antigen, Blood, Routine, 03/12/23, Once, Lab Collect, Normocytic anemia Cirrhosis of liver with ascites, Order for future visit Hepatitis C Antibody, Blood, Routine, 03/12/23, Once, Lab Collect, Normocytic anemia Cirrhosis ofliver with ascites, Order for future visit Iron Panel, Blood, Routine, 03/12/23, Once, Lab Collect, Normocytic anemia Cirrhosis of liver with ascites, Order for future visit Liver-Kidney Microsomal Ab LC, Blood, Routine, 03/12/23, Once, Lab Collect, Normocytic anemia Cirrhosis of liver with ascites, Order for future visit Mitochondrial (M2) Antibody LC, Blood, Routine, 03/12/23, Once, Lab Collect, Normocytic anemia Cirrhosis of liver with ascites, Order for future visit PT/ INR, Blood, Routine, 03/12/23, Once, Lab Collect, Normocytic anemia Cirrhosis of liver with ascites, Order for future visit Surgical Procedure Booking Request LTTL, 03/12/23 9:26:00 EDT, 04/29/23 10:00:00 EDT, LTTL Endoscopy, epigastric pain, n/v, Normocytic anemia Cirrhosis of liver with ascites, Outpatient, EGD, Primary Procedure, 15, Wilfred Ross MD, Consent to read EGD--[id number], [id number], [id number], 4... Abdomen Limited, 03/12/23, Routine, Reason: HCC screening,cirrhosis, Transport Mode: Ambulatory,Normocytic anemia Cirrhosis of liver with ascites Vitamin B12 & Folate Level, Blood, Routine, 03/12/23, Once, Lab Collect, Normocytic anemia Cirrhosis of liver with ascites, Order for future visit ?? Other ascites??R18.8 ?? Future Orders Actin (Smooth Muscle) Antibody LC, Blood, Routine, 03/12/23, Once, Lab Collect, Normocytic anemia Cirrhosis of liver with ascites, Order for future visit AFP, Serum, Tumor Marker LC, Blood, Routine, 03/12/23, Once, Lab Collect, Normocytic anemia Cirrhosis of liver with ascites, Order for future visit [id number], Serum LC, Blood, Routine, 03/12/23, Once, Lab Collect, Normocytic anemia Cirrhosis of liver with ascites, Order for future visit CARLTON w/Reflex LC, Blood, Routine, 03/12/23, Once, Lab Collect, Normocytic anemia Cirrhosis of liver with ascites, Order for future visit Ceruloplasmin LC, Blood, Routine, 03/12/23, Once, Lab Collect, Normocytic anemia Cirrhosis of liver with ascites, Order for future visit Ferritin, Blood, Routine, 03/12/23, Once, Lab Collect, Normocytic anemia Cirrhosis of liver with ascites, Order for future visit Hep A Ab, Total LC, Blood, Routine, 03/12/23, Once, Lab Collect, Normocytic anemia Cirrhosis of liver with ascites, Order for future visit Hep B Core Ab, Tot LC, Blood, Routine, 03/12/23, Once, Lab Collect, Normocytic anemia Cirrhosis of liver with ascites, Order for future visit Hepatitis B Surface Antibody, Blood, Routine, 03/12/23, Once, Lab Collect, Normocytic anemia Cirrhosis of liver with ascites, Order for future visit Hepatitis B Surface Antigen, Blood, Routine, 03/12/23, Once, Lab Collect, Normocytic anemia Cirrhosis of liver with ascites, Order for future visit Hepatitis C Antibody, Blood, Routine, 03/12/23, Once, Lab Collect, Normocytic anemia Cirrhosis ofliver with ascites, Order for future visit Iron Panel, Blood, Routine, 03/12/23, Once, Lab Collect, Normocytic anemia Cirrhosis of liver with ascites, Order for future visit Liver-Kidney Microsomal Ab LC, Blood, Routine, 03/12/23, Once, Lab Collect, Normocytic anemia Cirrhosis of liver with ascites, Order for future visit Mitochondrial (M2) Antibody LC, Blood, Routine, 03/12/23, Once, Lab Collect, Normocytic anemia Cirrhosis of liver with ascites, Order for future visit PT/ INR, Blood, Routine, 03/12/23, Once, Lab Collect, Normocytic anemia Cirrhosis of liver with ascites, Order for future visit Vitamin B12 & Folate Level, Blood, Routine, 03/12/23, Once, Lab Collect, Normocytic anemia Cirrhosis of liver with ascites, Order for future visit US Abdomen Limited, 03/12/23, Routine, Reason: HCC screening,cirrhosis, Transport Mode: Ambulatory,Normocytic anemia Cirrhosis of liver with ascites Problem List/Past Medical History Ongoing Abdominal pain AF - Atrial fibrillation LAURIE - acute kidney injury Ataxia Bacteremia Breast cancer Breast reconstruction Cataract Cervicalgia Chemotherapy Chronic diarrhea Chronic pain Clostridium difficile Coagulopathy Constipation Cyst Depression DM - Diabetes mellitus Epistaxis Foot callus Gastric varices GI - Gastrointestinal bleed Hemoptysis History of COVID-19 HT - Hypertension Hyperlipidemia Hypoglycemia Hypokalemia Hypomagnesemia Hyponatremia N&V - Nausea and vomiting Normocytic anemia Osteoarthritis Pericarditis Plantar wart Pleural effusion Port Portal hypertension Refractive error Respiratory distress Sacroiliac joint Sepsis Skin lesion Thrombocytopenia Unintentional weight loss Historical No qualifying data Procedure/Surgical History ???Biopsy of liver (12/12/2017)???Hysterectomy (11/29/2006)???Breast reconstruction???Lumpectomy???Mastectomy Double Medications ceFAZolin 10 g injection clindamycin 300 mg oral capsule, 300 mg= 1 cap, Oral, BID FREESTYLE CASSIE 2 SENSOR KIT furosemide 20 mg oral tablet, 20 mg= 1 tab, Oral, Daily gabapentin 100 mg oral capsule, 100 mg= 1 cap, Oral, TID hydrALAZINE 25 mg oral tablet, 25 mg= 1 tab, Oral, QID Lantus Solostar Pen 100 units/mL subcutaneous solution, 10 units, Subcutaneous, Daily levoFLOXacin 750 mg oral tablet, 750 mg= 1 tab, Oral, every 24 hr losartan 50 mg oral tablet, 50 mg= 1 tab, Oral, Daily magnesium oxide 400 mg (241.3 mg elemental magnesium) oral tablet, 400 mg= 1 tab, Oral, Daily MetFORMIN (Eqv-Glucophage XR) 500 mg oral tablet, extended release Metoprolol Tartrate 25 mg oral tablet, 25 mg= 1 tab, Oral, BID ondansetron 4 mg oral tablet, disintegrating, 4 mg= 1 tab, Oral, Once, PRN Potassium Chloride (Ely-Fugt-Lmp M20) 20 mEq oral tablet, extended release spironolactone 25 mg oral tablet, 25 mg= 1 tab, Oral, Daily sucralfate 1 g oral tablet, 1 g= 1 tab, Oral, BID vancomycin 1 g intravenous injection, 1 g, IV, every 12 hr Allergies morphine Bee Stings Social History Alcohol Never Electronic Cigarette/Vaping Electronic Cigarette Use: Never. Substance Use Never Tobacco Never tobacco user Tobacco Use:. Family History Cancer: Father. Family Member(s): ?? FATHER, at age: Unknown. Cause of : Electronically Signed on 03/12/23 09:28 AM Wilfred Ross MD Patient Care team information Care Team Personnel Name: GABRIELLE DUNN Position: No Access Member Role: Primary Care Physician Address: Address: [address] [place] [id number] Care Team Related Persons Name: PATEL MCCORMICK Address: Home [address] [place], [place] [id number] [facility]
--- OUTSIDE RECORDS SUMMARY | 2023-06-28 14:33 | XMS_ITS | Continuity of Care Document ---
Author Name Unknown Organization [facility] Address [address] [place] [id number] Care Team Providers Care Wiring Mechanic Name Role Phone MAYO DUNN Primary Care Physician [phone] Encounter [facility] NBR [id number] Date(s): 04/09/23 - 04/09/[address] [id number] Encounter Diagnosis Anemia, unspecified(Final) - Unspecified cirrhosis of liver(Final) - Discharge Disposition: Home or Self Care Attending Physician: Wilfred Ross MD Admitting Physician: Wilfred Ross MD Referring Physician: MAYO DUNN Allergies, Adverse Reactions, Alerts Substance Reaction Severity Status morphine Severe Active Bee Stings Unknown Active Assessment and Plan Future Appointments Medications ceFAZolin 10 g injection 0 Refill(s) [...] Start Date: 03/06/23 Status: Ordered Potassium Chloride (Jhi-Rdre-Lvq M20) 20 mEq oral tablet, extended release [...] Completed Mastectomy Double Complet ed 1with ultrasound Results Radiology Reports * Exam Date Time Procedure Performing Provider Status 04/09/23 8:42 AM US Abdomen Limited Maillet, Mahesh; Au th (Verified) Notes: (US Abdomen Limited) Reason For Exam: HCC screening,cirrhosis US Abdomen Limited EXAM DESCRIPTION: US Abdomen Limited 04/09/2023 INDICATION: HCC SCREENING,CIRRHOSIS TECHNIQUE: Grayscale and color Doppler ultrasound examination of the right upper quadrant region of the abdomen. COMPARISON: None FINDINGS: Liver measures 15.4 cm in maximum dimension. Mild lobulation and nodularity of hepatic contour with mild coarsening of hepatic echotexture suggesting changes of cirrhosis. Small anechoic lesion in the right hepatic lobe measuring 7 x 6 x 6 mm most consistent with small cyst. No suspicious focal hepatic lesion identified. The main portal vein is patent with normal flow direction. A recanalized paraumbilical vein is noted suggesting portal hypertension. The pancreas is partly obscured by overlying bowel gas. Visualized portions are unremarkable No ascites in the right upper quadrant The spleen is enlarged measuring 14 cm in maximum dimension Tiny echogenic filling defect along the posterior gallbladder margin with minimal shadowing. Findings may reflect gallbladder wall cholesterolosis although tiny gallstones are difficult to exclude. Nodular nonmobile filling defect along the anterior gallbladder wall measuring 5 x 5 x 4 mm consistent with polyp. No gallbladder wall thickening or pericholecystic fluid. Negative sonographic Buenrostro sign No biliary dilatation with common bile duct diameter of 4.2 mm Right kidney measures 10.3 cm in maximum dimension. No focal right renal mass, hydronephrosis or perinephric fluid collection. IMPRESSION: Findings suggesting changes of cirrhosis. Small cyst in the right hepatic lobe. No suspicious focal hepatic lesion The main portal vein is patent with normal flow direction. Recanalized paraumbilical vein suggesting component of portal hypertension No ascites in the right upper quadrant Mild splenomegaly Small echogenic filling defects along the posterior gallbladder margin which may reflect gallbladder wall cholesterolosis although tiny gallstones are difficult to exclude. Small gallbladder polyp noted as well. No gallbladder inflammatory changes or biliary dilatation. JOB #: [id number] Final Signed by: Elia Maki MD Signed (Electronic Signature): 04/09/2023 9:18 am Social History Social History Type Response Tobacco Never tobacco user T obacco Use:. Sex Patient Care team information Care Team Personnel Name: MAYO DUNN Position: No Access Member Role: Primary Care Physician Address: Address: [address] [place] [phone] [place] Care Team Related Persons Name: PATEL MCCORMICK Address: Home [address] [place], [place] [id number] [facility]
--- OUTSIDE RECORDS SUMMARY | 2023-06-28 14:33 | XMS_ITS | Continuity of Care Document ---
Author Name Unknown Organization [facility] Address [address] [place] [id number] Encounter [facility] NBR [id number] Date(s): 01/16/23 - 01/16/[address] [address]- Encounter Diagnosis Encounter for other administrative examinations(Final) - Discharge Disposition: Home or Self Care Attending Physician: Sabrina Bonilla Admitting Physician: Sabrina Bonilla Assessment and Plan Future Appointments
--- OUTSIDE RECORDS SUMMARY | 2023-06-28 14:33 | XMS_ITS | Continuity of Care Document ---
Author Name Unknown Organization [facility] Address [address] [place] [phone] Care Team Providers Care Client Portfolio Manager Name Role Phone MAYO DUNN Primary Care Physician Encounter [facility]_OR FIN NBR [id number] Date(s): 03/12/23 - 03/12/[address] [id number]- Encounter Diagnosis Other ascites(Discharge Diagnosis) - 03/12/23 Anemia, unspecified(Final) - Unspecified cirrhosis of liver(Final) - Discharge Disposition: Home or Self Care Attending Physician: Wilfred Ross MD Admitting Physician: Wilfred Ross MD Allergies, Adverse Reactions, Alerts Substance Reaction Severity Status morphine Severe Active Bee Stings Unknown Active Assessment and Plan Future Appointments Diagnostic Tests Pending * AFP, Serum, Tumor Marker LC 03/12/23 * Actin (Smooth Muscle) Antibody LC 03/12/23 * Mitochondrial (M2) Antibody LC 03/12/23 * Hep A Ab, Total LC 03/12/23 * Hep B Core Ab, Tot LC 03/12/23 * Marjn-0-Ajehcwiouqe, Serum LC 03/12/23 * Ceruloplasmin LC 03/12/23 * Liver-Kidney Microsomal Ab LC 03/12/23 Future Scheduled Tests Radiology* US Abdomen Limited [...] Start Date: 03/06/23 Status: Ordered Potassium Chloride ([id number]-[id number] M20) 20 mEq oral tablet, extended release [...] Mastectomy Double Complet ed 1with ultrasound Results Laboratory List Name Date [facility] w/Reflex LC 03/12/23 Ferritin 03/12/23 Hepatitis B Surface Antibody 03/12/23 Hepatitis B Surface Antigen 03/12/23 Hepatitis C Antibody 03/12/23 Iron Panel 03/12/23 PT/ INR 03/12/23 Vitamin B12 & Folate Level 03/12/23 Most recent to oldest [Reference Range]: 1 Prothrombin Time [9.1-10.6 seconds] 9.5 seconds (03/12/23 9:39 AM) INR [0.9-1.1] 1.0 1 (03/12/23 9:39 AM) Folate Level [>=5.9 ng/mL] >20.0 ng/mL (03/12/23 9:39 AM) Iron Sat [20-55 %] 19 % *LOW* (03/12/23 9:39 AM) Transferrin [192-382 mg/dL] 281 mg/dL (03/12/23 9:39 AM) B12 Level [180-914 pg/mL] 768 pg/mL (03/12/23 9:39 AM) Ferritin Level [11.0-307.0 ng/mL] 32.4 n g/mL (03/12/23 9:39 AM) Hep Bs Ag [Non Reactive] Non Reactive 2 (03/12/23 9:39 AM) TIBC 393 *NA* (03/12/23 9:39 AM) Hep B Surface Ab [<=10.00 mIntlUnit/mL] <3.10 mIntlUnit/mL 3 (03/12/23 9:39 AM) Iron [28-170 mcg/dL] 75 mcg/dL (03/12/23 9:39 AM) Hep C Ab [Non Reactive] Non Reactive 4 (03/12/23 9:39 AM) CARLTON Direct LC [Negative] Negative 5 *NA* (03/12/23 9:39 AM) 1Interpretive Data: THERAPEUTIC INR RANGES FOR WARFARIN Uncomplicated venous thromboembolic disease 2-3 Lupus Anticoagulant and recurrent thrombosis 3-3.5 Mechanical prosthetic valve or recurrent thrombosis 2.5-3.5 2Interpretive Data: HBsAG is a screening assay. All reactive HBsAg tests will reflex to a confirmatory assay. Interpretative Elda: REACTIVE RESULTS ARE REPORTED TO THE [facility] 3Interpretive Data: IMMUNE: Anti-HBS is detected at >=10 mIU/mL; the patient is considered to have protective immunity to HBV Infection. NON-REACTIVE: Anti-HBS is below 10 mIU/mL; the patient is considered not to have protective immunity to HBV Infection. 4Interpretive Data: IF EQUIVOCAL OR REACTIVE, CONFIRMATORY TESTING WITH REFLEX TO QUANTITATIVE PCR WILL BE PERFORMED. 5Result Comment: Performed At: RN [facility] [address] [id number] Fabricio Shearer MD Ph:[phone] Social History Social History Type Response Tobacco Never tobacco user T obacco Use:. Sex Patient Care team information Care Team Personnel Name: MAYO DUNN Position: No Access Member Role: Primary Care Physician Address: Address: [address] [place] [phone] [place] Care Team Related Persons Name: PATEL MCCORMICK Address: Home [address] [place], [place] [id number] [facility]
--- OUTSIDE RECORDS SUMMARY | 2023-06-28 14:33 | XMS_ITS | Continuity of Care Document ---
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(Discharge Diagnosis) - 04/29/23 Unspecified cirrhosis of liver(Discharge Diagnosis) - 04/29/23 Discharge Disposition: Home f/u Internal Provider Attending Physician: Wilfred Ross MD Admitting Physician: Wilfred Ross MD Referring Physician: Wilfred Ross MD Allergies, Adverse Reactions, Alerts Substance Reaction Severity Status morphine Vomiting Severe Active Bee Stings Unknown Active Assessment and Plan Future Appointments Diagnostic Tests Pending * Pathology Request 04/29/23 Functional Status 04/29/23 ADLs Independent 04/24/23 Living Situation Home independently Medications FREESTYLE CASSIE 2 SENSOR KIT FREESTYLE [...] Start Date: 03/06/23 Status: Ordered Potassium Chloride (Nvb-Ouhu-Ykk M20) 20 mEq oral tablet, extended release [...] Confirmed Active Unintentional weight loss Confirmed Active 1pt had bilat mastectomy . States can only use left arm Procedures Procedure Date Related Diagnosis Body Site Status Esophagogastroduodenoscopy Biopsy 1 04/29/23 Completed Biopsy of liver 2 12/11/17 Complet ed Hysterectomy 11/28/06 Completed Breast reconstruction Com pleted Colonoscopy Completed Lumpectomy Completed Mastectomy Double Complet ed 1auto-populated from documented surgical case 2with ultrasound Vital Signs Most recent to oldest [Reference Range]: 1 2 3 Temperature Temporal Artery [36-38 Deg C] 36.4 Deg C (04/29/23 1:40 PM) 36.5 Deg C (04/29/23 12:41 PM) Temperature Temporal Artery (DegF) [97.3-100 Deg F] 97.52 Deg F (04/29/23 1:40 PM) Peripheral Pulse Rate [60-100 bpm] 72 bpm (04/29/23 2:02 PM) 73 bpm (04/29/23 1:52 PM) 76 bpm (04/29/23 12:41 PM) Heart Rate Monitored [60-100 bpm] 72 bpm (04/29/23 1:52 PM) 71 bpm (04/29/23 1:40 PM) 77 bpm (04/29/23 12:41 PM) Respiratory Rate [12-24 br/min] 18 br/min (04/29/23 2:02 PM) 17 br/min (04/29/23 1:52 PM) Blood Pressure [90-140/60-90 mmHg] 162/81mmHg *HI* (04/29/23 2:02 PM) 168/89mmHg *HI* (04/29/23 1:52 PM) 133/58mmHg (04/29/23 1:40 PM) Mean Arterial Pressure, Cuff [65-140 mmHg] 108 mmHg (04/29/23 2:02 PM) 115 mmHg (04/29/23 1:52 PM) 83 mmHg (04/29/23 1:40 PM) Mean Arterial Pressure Cuff 100 mmHg (04/29/23 2:02 PM) 80 mmHg (04/29/23 1:52 PM) Blood Pressure Invasive [90-140/60-90 mmHg] 184/104mmHg *HI* (04/29/23 12:41 PM) Blood Pressure Location Left leg (04/29/23 2:02 PM) Left leg (04/29/23 1:52 PM) Left leg (04/29/23 1:40 PM) Blood Pressure Method Automatic (04/29/23 2:02 PM) Automatic (04/29/23 1:52 PM) Automatic (04/29/23 1:40 PM) Weight 63.030 kg (04/24/23 4:31 PM) Weight Dosing 63.030 kg (04/24/23 4:31 PM) Height 157.480 cm (04/24/23 4:31 PM) Height/Length Dosing 157.480 cm (04/24/23 4:31 PM) Social History Social History Type Response Tobacco Never tobacco user T obacco Use:. Sex Hospital Discharge Instructions Patient Education 04/29/2023 12:51:54 Upper Endoscopy, Adult, Care After Upper Endoscopy, Adult, Care After This sheet gives you information about how to care for yourself after your procedure. Your health care provider may also give you more specific instructions. If you have problems or questions, contact your health care provider. What can I expect after the procedure? After the procedure, it is common to have: ??? A sore throat. ??? Mild stomach pain or discomfort. ??? Bloating. ??? Nausea. Follow these instructions at home: ??? Follow instructions from your health care provider about what to eat or drink after your procedure. ??? Return to your normal activities as told by your health care provider. Ask your health care provider what activities are safe for you. ??? Take ypur-zqn-ewplnig and prescription medicines only as told by your health care provider. ??? If you were given a sedative during the procedure, it can affect you for several hours. Do not drive or operate machinery until your health care provider says that it is safe. ??? Keep all follow-up visits as told by your health care provider. This is important. Contact a health care provider if you have: ??? A sore throat that lasts longer than one day. ??? Trouble swallowing. Get help right away if: ??? You vomit blood or your vomit looks like coffee grounds. ??? You have: ??? A fever. ??? Bloody, black, or tarry stools. ??? A severe sore throat or you cannot swallow. ??? Difficulty breathing. ??? Severe pain in your chest or abdomen. Summary ??? After the procedure, it is common to have a sore throat, mild stomach discomfort, bloating, andnausea. ??? If you were given a sedative during the procedure, it can affect you for several hours. Do not drive or operate machinery until your health care provider says that it is safe. ??? Follow instructions from your health care provider about what to eat or drink after your procedure. ??? Return to your normal activities as told by your health care provider. This information is not intended to replace advice given to you by your health care provider. Make sure you discuss any questions you have with your health care provider. Document Revised: 05/13/2020 Document Reviewed: 12/08/2018 [facility] [employer] Patient Education ?? 2022 [employer]. 04/29/2023 12:51:51 Esophageal Varices Esophageal Varices Esophageal varices are enlarged veins in the part of the body that moves food from the mouth to thestomach (esophagus). They develop when extra blood is forced to flow through these veins because the blood's normal flow is blocked. Without treatment, esophageal varices eventually break and bleed (hemorrhage), which can be life-threatening. What are the causes? This condition may be caused by: ??? Scarring of the liver due to alcoholism. This is the most common cause. ??? Long-term liver disease. ??? Severe heart failure. ??? A blood clot in a vein that supplies the liver. ??? A disease that causes inflammation in the organs and other body areas. What are the signs or symptoms? Esophageal varices usually do not cause symptoms unless they start to bleed. Symptoms of bleeding esophageal varices include: ??? Vomiting material that is bright red or that is black and looks like coffee grounds. ??? Coughing up blood. ??? Stools (feces) that look black and tarry. ??? Dizziness or light-headedness. ??? Low blood pressure. ??? Loss of consciousness. How is this diagnosed? This condition is diagnosed with a procedure called endoscopy. During endoscopy, your health care provider uses a flexible tube with a small camera on the end of it (endoscope) to look down your throat and examine your esophagus. You may also have other tests, including: ??? Imaging tests, such as a CT scan or ultrasound. ??? Blood tests. How is this treated? This condition may be treated with: ??? Medicines. Medicines are usually used to treat varices that are not bleeding. ??? Procedures. Procedures are done to treat varices that are bleeding. They stop bleeding, or reduce pressure and the risk of bleeding. Procedures include: ??? Placing an elastic band around the varices to keep them from bleeding. ??? Replacing blood that you have lost due to bleeding. This may include getting a transfusion of blood or parts of blood, such as platelets or clotting factors. ??? You may be given antibiotic medicine to help prevent infection. ??? Getting an injection into the varices that causes it to shrink and close (sclerotherapy). You may also be given medicines that tighten blood vessels or change blood flow. ??? Placing a balloon in the esophagus and inflating it. The balloon applies pressure to the bleeding veins to help stop the bleeding. ??? Placing a small tube within the veins in the liver. This decreases blood flow and pressure in the esophageal varices. If other treatments do not work, you may need a liver transplant. Follow these instructions at home: Medicines ??? Take dueq-ztl-cahxiuv and prescription medicines only as told by your health care provider. ??? If you were prescribed an antibiotic medicine, take it as told by your health care provider. Donot stop taking the antibiotic even if you start to feel better. ??? Do not take any NSAIDs (such as aspirin or ibuprofen) before first getting approval from your health care provider. General instructions ??? Do not drink alcohol. ??? Return to your normal activities as told by your health care provider. Ask your health care provider what activities are safe for you. ??? Avoid vigorous physical activity. Ask your health care provider what exercises are safe for you. ??? Keep all follow-up visits. Contact a health care provider if: ??? You have pain in the abdomen. ??? You are unable to eat or drink. Get help right away if: ??? You vomit blood or have blood in your stool. ??? You have stools that look black or tarry. ??? You have chest pain. ??? You feel dizzy or have low blood pressure. ??? You lose consciousness. These symptoms may represent a serious problem that is an emergency. Do not wait to see if the symptoms will go away. Get medical help right away. Call your local emergency services (911 in the [place] Do not drive yourself to the hospital. Summary ??? Esophageal varices are enlarged veins in the esophagus, the part of your body that moves food from your mouth to your stomach. ??? Without treatment, esophageal varices eventually break and bleed, which can be life-threatening. ??? Esophageal varices usually do not cause symptoms unless they start to bleed. ??? Keep all follow-up visits. This is important. This information is not intended to replace advice given to you by your health care provider. Make sure you discuss any questions you have with your health care provider. Document Revised: 10/25/2020 Document Reviewed: 10/25/2020 [employer] Patient Education ?? 2022 [employer] Discharge instructions * Michelle Huitron: PERFORM Event Display: Discharge Instructions Authored Date: [id number] KATHRYN PATEL I :1965 Age:58 years Sex:Female Visit Date:04/29/2023 Primary Care Physician: MAYO DUNN Hospital Discharge Instructions We would like to thank you for allowing us to assist you with your healthcare needs. The following includes patient education materials and information regarding your injury/illness. Your Next Steps Scheduled Future Appointments Saturday 9:30 AM EDT ?? With: Liz Rg APRN Where: [facility] Gastroenterology Status: Confirmed Medications What How Much When Instructions Next Dose Unchanged gabapentin (gabapentin 100 mg oral capsule) 1 Capsules Oral (given by mouth) 2 times a day Unchanged insulin glargine (Lantus Solostar Pen 100 units/ mL subcutaneous solution) 10 Units Subcutaneous (under the skin) Every day Unchanged magnesium oxide (magnesium oxide 400 mg (241.3 mg elemental magnesium) oral tablet) 1 tab Oral (given by mouth) Every day Duration: 7 Days Unchanged metFORMIN (MetFORMIN (Eqv-Glucophage XR) 500 mg oral tablet, extended release) TAKE 1 TABLET BY MOUTH ONCE DAILY IN THE MORNING ?? Unchanged metoprolol (Metoprolol Tartrate 25 mg oral tablet) 1 tab Oral (given by mouth) 2 times a day Unchanged Other Prescription (FREESTYLE CASSIE 2 SENSOR KIT) USE DIRECTED , CHANGE SENSOR EVERY 2 WEEKS ?? Unchanged potassium chloride (Potassium Chloride (Htm-Ldat-Dkk M20) 20 mEq oral tablet, extended release) TAKE 1 TABLET BY MOUTH DAILY ?? 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 Abdominal pain AF - Atrial fibrillation LAURIE [...] w/lymph node removal Thrombocytopenia Unintentional weight loss Procedures Performed ???Esophagogastroduodenoscopy Biopsy (04/29/2023)???Colonoscopy Discharge Vitals Temperature??(Temporal Artery) 97.5 ??F (36.4 ??C) Heart Rate??(Peripheral) 73 Heart Rate??(Monitored) 72 Respiratory Rate?? 17 Blood Pressure?? 168/89?? Blood Pressure?? 184/104(Line)?? Allergies morphine??(Vomiting) Bee Stings Education Materials Upper Endoscopy, Adult, Care After This sheet gives you information about how to care for yourself after your procedure. Your health care provider may also give you more specific instructions. If you have problems or questions, contact your health care provider. What can I expect after the procedure? After the procedure, it is common to have: ? A sore throat. ? Mild stomach pain or discomfort. ? Bloating. ? Nausea. Follow these instructions at home: ? Follow instructions from your health care provider about what to eat or drink after your procedure. ? Return to your normal activities as told by your health care provider. Ask your health care provider what activities are safe for you. ? Take reix-bkk-cwcriwc and prescription medicines only as told by your health care provider. ? If you were given a sedative during the procedure, it can affect you for several hours. Do not drive or operate machinery until your health care provider says that it is safe. ? Keep all follow-up visits as told by your health care provider. This is important. Contact a health care provider if you have: ? A sore throat that lasts longer than one day. ? Trouble swallowing. Get help right away if: ? You vomit blood or your vomit looks like coffee grounds. ? You have: ? A fever. ? Bloody, black, or tarry stools. ? A severe sore throat or you cannot swallow. ? Difficulty breathing. ? Severe pain in your chest or abdomen. Summary ? After the procedure, it is common to have a sore throat, mild stomach discomfort, bloating, and nausea. ? If you were given a sedative during the procedure, it can affect you for several hours. Do not drive or operate machinery until your health care provider says that it is safe. ? Follow instructions from your health care provider about what to eat or drink after your procedure. ? Return to your normal activities as told by your health care provider. This information is not intended to replace advice given to you by your health care provider. Make sure you discuss any questions you have with your health care provider. Document Revised: 05/13/2020 Document Reviewed: 12/08/2018 [employer] [facility] [employer] Patient Education ?? 202 [employer] Esophageal Varices Esophageal varices are enlarged veins in the part of the body that moves food from the mouth to thestomach (esophagus). They develop when extra blood is forced to flow through these veins because the blood's normal flow is blocked. Without treatment, esophageal varices eventually break and bleed (hemorrhage), which can be life-threatening. What are the causes? This condition may be caused by: ? Scarring of the liver due to alcoholism. This is the most common cause. ? Long-term liver disease. ? Severe heart failure. ? A blood clot in a vein that supplies the liver. ? A disease that causes inflammation in the organs and other body areas. What are the signs or symptoms? Esophageal varices usually do not cause symptoms unless they start to bleed. Symptoms of bleeding esophageal varices include: ? Vomiting material that is bright red or that is black and looks like coffee grounds. ? Coughing up blood. ? Stools (feces) that look black and tarry. ? Dizziness or light-headedness. ? Low blood pressure. ? Loss of consciousness. How is this diagnosed? This condition is diagnosed with a procedure called endoscopy. During endoscopy, your health care provider uses a flexible tube with a small camera on the end of it (endoscope) to look down your throat and examine your esophagus. You may also have other tests, including: ? Imaging tests, such as a CT scan or ultrasound. ? Blood tests. How is this treated? This condition may be treated with: ? Medicines. Medicines are usually used to treat varices that are not bleeding. ? Procedures. Procedures are done to treat varices that are bleeding. They stop bleeding, or reduce pressure and the risk of bleeding. Procedures include: ? Placing an elastic band around the varices to keep them from bleeding. ? Replacing blood that you have lost due to bleeding. This may include getting a transfusion of bloodor parts of blood, such as platelets or clotting factors. ? You may be given antibiotic medicine to help prevent infection. ? Getting an injection into the varices that causes it to shrink and close (sclerotherapy). You may also be given medicines that tighten blood vessels or change blood flow. ? Placing a balloon in the esophagus and inflating it. The balloon applies pressure to the bleeding veins to help stop the bleeding. ? Placing a small tube within the veins in the liver. This decreases blood flow and pressure in the esophageal varices. If other treatments do not work, you may need a liver transplant. Follow these instructions at home: Medicines ? Take jdyf-khu-sunxhzn and prescription medicines only as told by your health care provider. ? If you were prescribed an antibiotic medicine, take it as told by your health care provider. Do notstop taking the antibiotic even if you start to feel better. ? Do not take any NSAIDs (such as aspirin or ibuprofen) before first getting approval from your health care provider. General instructions ? Do not drink alcohol. ? Return to your normal activities as told by your health care provider. Ask your health care provider what activities are safe for you. ? Avoid vigorous physical activity. Ask your health care provider what exercises are safe for you. ? Keep all follow-up visits. Contact a health care provider if: ? You have pain in the abdomen. ? You are unable to eat or drink. Get help right away if: ? You vomit blood or have blood in your stool. ? You have stools that look black or tarry. ? You have chest pain. ? You feel dizzy or have low blood pressure. ? You lose consciousness. These symptoms may represent a serious problem that is an emergency. Do not wait to see if the symptoms will go away. Get medical help right away. Call your local emergency services (911 in the [place] Do not drive yourself to the hospital. Summary ? Esophageal varices are enlarged veins in the esophagus, the part of your body that moves food from your mouth to your stomach. ? Without treatment, esophageal varices eventually break and bleed, which can be life-threatening. ? Esophageal varices usually do not cause symptoms unless they start to bleed. ? Keep all follow-up visits. This is important. This information is not intended to replace advice given to you by your health care provider. Make sure you discuss any questions you have with your health care provider. Document Revised: 10/25/2020 Document Reviewed: 10/25/2020 [employer] [facility] [employer] Patient Education ?? 2022 [employer]. Patient/Patient Clerical Assistant Signature Patient Name:CHIARA PATELReza Roberts I have received this information and my questions have been answered. Patient/Patient Clerical Assistant Name: Patient/Patient Clerical Assistant Signature: Relationship to Patient: Witness Name/Signature: Date: Electronically Signed on: 04/29/2023 13:58 EDTSigned by:Michelle Zurita: PERFORM Event Display: Discharge Instructions Authored Date: [id number] KATHRYN PATEL Alejandra :1965 Age:58 years Sex:Female Visit Date:04/29/2023 Primary Care Physician: MAYO DUNN Hospital Discharge Instructions We would like to thank you for allowing us to assist you with your healthcare needs. The following includes patient education materials and information regarding your injury/illness. Your Next Steps Scheduled Future Appointments Saturday 9:30 AM EDT ?? With: Liz Rg APRN Where: [facility] Gastroenterology Status: Confirmed Medications What How Much When Instructions Next Dose Unchanged gabapentin (gabapentin 100 mg oral capsule) 1 Capsules Oral (given by mouth) 2 times a day Unchanged insulin glargine (Lantus Solostar Pen 100 units/ mL subcutaneous solution) 10 Units Subcutaneous (under the skin) Every day Unchanged magnesium oxide (magnesium oxide 400 mg (241.3 mg elemental magnesium) oral tablet) 1 tab Oral (given by mouth) Every day Duration: 7 Days Unchanged metFORMIN (MetFORMIN (Eqv-Glucophage XR) 500 mg oral tablet, extended release) TAKE 1 TABLET BY MOUTH ONCE DAILY IN THE MORNING ?? Unchanged metoprolol (Metoprolol Tartrate 25 mg oral tablet) 1 tab Oral (given by mouth) 2 times a day Unchanged Other Prescription ([employer] 2 SENSOR KIT) USE DIRECTED , CHANGE SENSOR EVERY 2 WEEKS ?? Unchanged potassium chloride (Potassium Chloride (Gsl-Pizp-Nfy M20) 20 mEq oral tablet, extended release) TAKE 1 TABLET BY MOUTH DAILY ?? 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 Abdominal pain AF - Atrial fibrillation LAURIE [...] w/lymph node removal Thrombocytopenia Unintentional weight loss Procedures Performed ???Esophagogastroduodenoscopy Biopsy (04/29/2023)???Colonoscopy Discharge Vitals Temperature??(Temporal Artery) 97.5 ??F (36.4 ??C) Heart Rate??(Monitored) 71 Blood Pressure?? 133/58?? Blood Pressure?? 184/104(Line)?? Allergies morphine??(Vomiting) Bee Stings Patient/Patient Clerical Assistant Signature Patient Name:KATHRYN PATEL I I have received this information and my questions have been answered. Patient/Patient Clerical Assistant Name: Patient/Patient Clerical Assistant Signature: Relationship to Patient: Witness Name/Signature: Date: Electronically Signed on: 04/29/2023 14:22 EDTSigned by:PG History and physical note * Wilfred Ross MD: PERFORM Event Display: History and Physical Authored Date: [id number] KATHRYN PATEL I :1965 Age:58 years Sex:Female Visit Date:04/29/2023 Primary Care Physician: MAYO DUNN History of Present Illness 58-year-old female with compensated Concepcion cirrhosis to screen for esophageal varices. Physical Exam Vitals & Measurements T:??36.5?C ??(Temporal Artery)?? HR:??76??(Peripheral)?? HR:??77??(Monitored)?? BP:??184/104?? BP:??184/104(Line)?? SpO2:??100%?? O2 Therapy:??Room air?? 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 Unspecified cirrhosis of liver??K74.60 Orders: Normal Saline Flush, 10 mL, IV Flush, Injection, As Directed, PRN online communications manager, First Dose: 04/29/23 12:56:00 EDT, Routine Sodium Chloride 0.9% 1,000 mL, Total Volume (mL): 1,000, 1,000 mL, Soln-IV, IV, 50 mL/hr, Start Date: 04/29/23 12:56:00 EDT, 63.03 kg, Populate Charting Weight From Order, 1.66, m2 Blood Glucose Monitoring POC RE, 04/29/23 12:56:00 EDT, Stop date 04/29/23 12:56:00 EDT Obtain consent, 04/29/23 12:56:00 EDT, Constant Order, 04/29/23 12:56:00 EDT Peripheral IV Insertion, 04/29/23 12:56:00 EDT Saline Lock Convert From IV, 04/29/23 12:56:00 EDT, Stop date 04/29/23 12:56:00 EDT Vital Signs, 04/29/23 12:56:00 EDT, Stop date 04/29/23 12:56:00 EDT, Routine Problem List/Past Medical History Ongoing Abdominal pain [...] Procedure/Surgical History ???Biopsy of liver (12/12/2017)???Hysterectomy (11/29/2006)???Breast reconstruction???Colonoscopy???Lumpectomy???Mastectomy Double Medications Inpatient Normal Saline Flush, 10 mL, IV Flush, As Directed, PRN Sodium Chloride 0.9% 1,000 mL, 1000 mL, IV Home FREESTYLE CASSIE 2 SENSOR KIT gabapentin 100 [...] mg= 1 tab, Oral, BID Potassium Chloride (Wck-Tlus-Eqb M20) 20 mEq oral tablet, extended release [...] Unknown. Cause of : Electronically Signed on 04/29/23 01:23 PM Wilfred Ross MD Patient Care team information Care Team Personnel Name: MAYO DUNN Position: No Access Member Role: Primary Care Physician Address: Address: [address] [place] [phone] [place] Care Team Related Persons Name: PATEL MCCORMICK Address: Home [address] [place], [place] [id number] [facility]
--- OUTSIDE RECORDS SUMMARY | 2023-06-28 14:33 | XMS_ITS | Continuity of Care Document ---
Author Name Unknown Organization [facility] Ambulatory Clinics Address [address] [place] [address] Care Team Providers Care [employer] T[employer] Tester Name Role Phone MAYO DUNN Primary Care Physician [phone] Encounter [facility] NBR [id number] Date(s): 06/19/23 - 06/19/23 [facility] Ambulatory Clinics [address] [place], [place] [address] Encounter Diagnosis Hepatitis B vaccination administered at current visit(Discharge Diagnosis) - 06/19/23 Discharge Disposition: Home or Self Care Attending Physician: Wilfred Ross MD Allergies, Adverse Reactions, Alerts Substance Reaction Severity Status morphine Vomiting Severe Active Bee Stings Unknown Active Assessment and Plan Future Appointments Immunizations Given and Recorded Vaccine Date Status Refusal Reason hepatitis B adult vaccine 06/19/23 Given hepatitis B adult vaccine 05/13/23 Given Medications [...] Start Date: 03/06/23 Status: Ordered Potassium Chloride (Jrs-Ehrm-Akk M20) 20 mEq oral tablet, extended release [...] documented surgical case [id number] 3with ultrasound Social History Social History Type Response Tobacco Never tobacco user T obacco Use:. Sex Patient Care team information Care Team Personnel Name: MONA MAYO Linsey Position: No Access Member Role: Primary Care Physician Address: Address: [address] [place] [phone] Care Team Related Persons Name: PATEL MCCORMICK Address: Home [address] [place], [place] [id number] [facility]
--- OUTSIDE RECORDS SUMMARY | 2023-06-28 14:33 | XMS_ITS | Continuity of Care Document ---
Author Name Unknown Organization [facility] Ambulatory Clinics Address [address] [place] [address] Care Team Providers Care Lieutenant General Name Role Phone MAYO DUNN Primary Care Physician [phone] Encounter [facility] NBR [id number] Date(s): 03/12/23 - 03/12/23 [facility] Ambulatory Clinics [address] [place] [address] [place] Discharge Disposition: Home Allergies, Adverse Reactions, [...] Start Date: 03/06/23 Status: Ordered Potassium Chloride (Gtf-Rkhx-Tsu M20) 20 mEq oral tablet, extended release [...] Member Role: Primary Care Physician Address: Address: [address] [place] [phone] [place] Care Team Related Persons Name: PATEL MCCORMICK Address: Home [address] [place], [place] [id number] [facility]
== END 2023-06-28 14:17 | disposition home or self-care (01) ==
LOC: NCHCN 14:16
PROVIDERS: PCP Family Medicine; Visit Provider Family Medicine
DX: L72.0 Epidermal cyst (principal); Z85.3 Personal history of malignant neoplasm of breast
CPT/HCPCS: 88305; 88361

== ENCOUNTER 2025-02-23 16:26 | Outpatient (REF) | payer MEDICAID, SELFPAY | END 2025-02-23 16:27 | disposition home or self-care (01) | LOC: NCHCN 16:26 | PROVIDERS: PCP Family Medicine; Visit Provider Family Medicine | DX: H61.22 Impacted cerumen, left ear (principal) | CPT/HCPCS: 87070; 87205 ==